=== PATIENT | female | born 1960 | race Hispanic/Latino ===

== ENCOUNTER 2023-10-22 10:18 | Emergency (ER) | payer OTHER, MEDICAID ==
[2023-10-22 12:12] LABS: #Basophils 0.06 10x3/uL (0.0-0.2); %Basophils 0.9 % (0.0-1.0); %Eosinophils 1.4 % (0.0-10.0); %Monocytes 8.5 % (0.0-10.0); %Neutrophils 63.9 % (42.0-75.0); Hematocrit 38.4 % (36.0-47.0); Hemoglobin 12.6 g/dL (12.0-16.0); Mean Corpuscular HGB CONC 32.8 g/dL (32.0-36.0); Mean Corpuscular Hemoglobin 28.8 pg (27.0-31.0); Mean Corpuscular Volume 87.9 fL (78.0-98.0); Mean Platelet Volume 9.8 fL (7.4-10.4); Platelet Count 198 10x3/uL (130-400); RBC Distribution Width 16.6 % (11.5-14.5); Red Blood Cell (RBC) Count 4.37 mill/uL (4.20-5.40)
[2023-10-22 12:32] LABS: ALT (SGPT) 35 U/L (8-55); AST (SGOT) 25 U/L (5-34); Albumin 3.2 g/dL (3.4-4.8); Alkaline Phosphatase 48 U/L (40-110); Anion Gap 16 mmol/L (10-20); BUN (Urea Nitrogen) 11 mg/dL (9.8-20.1); Bilirubin, Total 0.5 mg/dL (0.2-1.2); Calc. Creatinine Clearance 0 mL/min (70-130); Calcium 8.9 mg/dL (7.8-10.44); Carbon Dioxide 20 mmol/L (23-31); Chloride 111 mmol/L (98-107); Estimated GFR 100; Globulin 2.9 g/dL (2.4-3.5); Glucose 132 mg/dL (80-115); Potassium 3.8 mmol/L (3.5-5.1); Protein, Total 6.1 g/dL (5.8-8.1); Sodium 143 mmol/L (136-145)
[2023-10-22] MEDS ORDERED: diphenhydrAMINE 50 MG/ML VIAL ONE (12:35)
[2023-10-22] MEDS ORDERED: Metoclopramide HCl 10 MG (2 mL) VIAL ONE (12:36)
[2023-10-22 13:39] LABS: Bacteria/HPF None Seen HPF (None Seen); Bilirubin Negative (Negative); Blood, Urine Negative (Negative); CAUTI Indications for Culture Dysuria,urgency,freq; Clarity Clear (Clear); Glucose, Urine (Dipstick) 30 mg/dL (Negative); Ketone, Urine Trace mg/dL (Negative); Leukocyte 250 Leu/uL (Negative); Nitrite Negative (Negative); Protein, Urine (Dipstick) 100 mg/dL (Neg-Trace); RBC/HPF 0-3 HPF (0-3); Specific Gravity, Urine 1.031 (1.002-1.036); WBC/HPF 21-50 HPF (0-3); pH, Urine 6.5 (5.0-9.0)
[2023-10-22 13:49] LABS: Urine Culture Reflex Yes Yes
== END 2023-10-22 16:06 | disposition home or self-care (01) ==
LOC: ERS 10:18
DX: R51.9 Headache, unspecified (principal); E11.9 Type 2 diabetes mellitus without complications; I10 Essential (primary) hypertension
CPT/HCPCS: 70450; 80053; 81001; 85025; 87086; 93005; J1200; J2765; 96374; 96375

== ENCOUNTER 2023-10-25 15:21 | Inpatient (IN) | payer OTHER, MEDICAID ==
[~2023-10-25 15:21] MED LIST: Iopamidol-370 76% 500 ML MDV (1 ML CHARGE) ONE
[2023-10-25] MEDS ORDERED: Ondansetron PF 4 MG/2 ML Vial ONE (16:08)
[2023-10-25] MEDS ORDERED: Aspirin Chewable 81 MG TAB ONE (16:08)
[2023-10-25] MEDS ORDERED: dilTIAZem 25 MG/5 ML VIAL ONE (16:09)
[2023-10-25 16:10] LABS: #Basophils 0.04 10x3/uL (0.0-0.2); %Basophils 0.5 % (0.0-1.0); %Eosinophils 0.7 % (0.0-10.0); %Lymphocytes 18.3 % (21.0-51.0); %Monocytes 8.2 % (0.0-10.0); Hematocrit 37.8 % (36.0-47.0); Hemoglobin 12.3 g/dL (12.0-16.0); Mean Corpuscular HGB CONC 32.5 g/dL (32.0-36.0); Mean Corpuscular Hemoglobin 29.5 pg (27.0-31.0); Mean Corpuscular Volume 90.6 fL (78.0-98.0); Mean Platelet Volume 9.6 fL (7.4-10.4); Platelet Count 210 10x3/uL (130-400); Red Blood Cell (RBC) Count 4.17 mill/uL (4.20-5.40)
[2023-10-25 16:22] LABS: INR-International Normal Ratio 1.1; PTT 27.7 sec (22.9-36.1); Prothrombin Time 13.8 sec (12.0-14.7)
[2023-10-25 16:27] LABS: ALT (SGPT) 28 U/L (8-55); AST (SGOT) 22 U/L (5-34); Albumin 3.6 g/dL (3.4-4.8); Alkaline Phosphatase 58 U/L (40-110); Anion Gap 16 mmol/L (10-20); BUN (Urea Nitrogen) 15 mg/dL (9.8-20.1); Bilirubin, Total 0.7 mg/dL (0.2-1.2); Calc. Creatinine Clearance 0 mL/min (70-130); Calcium 9.1 mg/dL (7.8-10.44); Carbon Dioxide 22 mmol/L (23-31); Chloride 110 mmol/L (98-107); Estimated GFR 87; Glucose 239 mg/dL (80-115); Magnesium 1.8 mg/dL (1.6-2.6); Potassium 3.5 mmol/L (3.5-5.1); Protein, Total 6.6 g/dL (5.8-8.1); Sodium 144 mmol/L (136-145)
[2023-10-25 16:30] LABS: Troponin I Less than 0.010 ng/mL (< 0.028)
[2023-10-25 16:54] LABS: Actual Bicarbonate (HCO3v) 22.1 mEq/L (22-28); Base Excess -0.2 mEq/L (-2.0 to +3.0); Calcium, Ionized (venous) 1.02 mmol/L (1.16-1.32); Chloride (VBG) 107 mmol/L (98-106); Hematocrit-VBG 39 % (36.0-47.0); Hemoglobin (Hb) 13.4 g/dL (11.7-16.0); Potassium (VBG) 4.04 mmol/L (3.70-5.30); Sodium 141 mmol/L (133-146); pH (venous) 7.492 (7.32-7.43)
[2023-10-25] MEDS ORDERED: Docusate 100 MG CAP PO PRN (17:45)
[2023-10-25] MEDS ORDERED: Dextrose 5% in Water 1,000 ML IV PRN (17:49)
[2023-10-25] MEDS ORDERED: Dextrose 50% Abboject 50 ML SYRINGE SLOW IVP PRN (17:49)
[2023-10-25] MEDS ORDERED: Ondansetron PF 4 MG/2 ML Vial IVP PRN (17:49)
[2023-10-25] MEDS ORDERED: Glucagon 1 MG/ML KIT IM PRN (17:49)
[2023-10-25 18:04] LABS: Bacteria/HPF None Seen HPF (None Seen); Bilirubin Negative (Negative); Blood, Urine Negative (Negative); CAUTI Indications for Culture Alt mental st,lethar; Clarity Clear (Clear); Glucose, Urine (Dipstick) 50 mg/dL (Negative); Ketone, Urine Negative (Negative); Leukocyte Negative Leu/uL (Negative); Nitrite Negative (Negative); Protein, Urine (Dipstick) 20 mg/dL (Neg-Trace); RBC/HPF 0-3 HPF (0-3); Squamous Epithelial 0-3 HPF (0-3); Urobilinogen Normal mg/dL (Less than 2); WBC/HPF 0-3 HPF (0-3)
[2023-10-25 18:06] LABS: Specific Gravity, Urine Greater than 1.060 (1.002-1.036); Urine Culture Reflex No No
[2023-10-25 19:22] LABS: Lactic Acid 1.2 mmol/L (0.5-2.2)
[2023-10-25 19:25] LABS: Troponin I Less than 0.010 ng/mL (< 0.028)
[2023-10-25] MEDS: Amiodarone 200 MG TAB PO SCH (20:52)
[2023-10-25] MEDS: Baclofen 10 MG TAB PO SCH (20:53)
[2023-10-25] MEDS: clonazePAM 1 MG TAB PO SCH (20:53)
[2023-10-25] MEDS: Atorvastatin Calcium 40 MG TAB PO SCH (20:53)
[2023-10-25] MEDS: Carbidopa/Levodopa 25-100 mg Tablet PO SCH (20:53)
[2023-10-25] MEDS: Insulin Glargine 30 UNITS/0.3 ML VIAL SC SCH (20:54)
[2023-10-25] MEDS: Gabapentin 300 MG CAP PO SCH (20:54)
[2023-10-25 21:12] LABS: Troponin I Less than 0.010 ng/mL (< 0.028)
[2023-10-25] MEDS: Trihexyphenidyl 2 MG TAB PO SCH (22:31)
[2023-10-26 01:26] VITALS: BMI 43.7
[2023-10-26 04:43] LABS: #Basophils 0.05 10x3/uL (0.0-0.2); %Basophils 0.9 % (0.0-1.0); %Lymphocytes 27.5 % (21.0-51.0); %Monocytes 9.7 % (0.0-10.0); %Neutrophils 59.7 % (42.0-75.0); Hematocrit 34.6 % (36.0-47.0); Hemoglobin 11.2 g/dL (12.0-16.0); Mean Corpuscular HGB CONC 32.4 g/dL (32.0-36.0); Mean Corpuscular Volume 92.8 fL (78.0-98.0); Mean Platelet Volume 9.7 fL (7.4-10.4); Platelet Count 177 10x3/uL (130-400); RBC Distribution Width 17.1 % (11.5-14.5); Red Blood Cell (RBC) Count 3.73 mill/uL (4.20-5.40)
[2023-10-26 05:09] LABS: Anion Gap 10 mmol/L (10-20); BUN (Urea Nitrogen) 12 mg/dL (9.8-20.1); Calc. Creatinine Clearance 169 mL/min (70-130); Calcium 8.5 mg/dL (7.8-10.44); Carbon Dioxide 25 mmol/L (23-31); Chloride 108 mmol/L (98-107); Estimated GFR 101; Glucose 116 mg/dL (80-115); Potassium 3.4 mmol/L (3.5-5.1); Sodium 140 mmol/L (136-145)
[2023-10-26] MEDS: Levothyroxine Sodium 88 MCG TAB PO SCH (05:38)
[2023-10-26] MEDS: Acetaminophen 325 MG TAB PO PRN (05:38)
[2023-10-26] MEDS: Furosemide 40 MG (4 mL) VIAL SLOW IVP SCH (05:38)
[2023-10-26] MEDS: Potassium Chloride 20 MEQ in Premix 1 BAG IVPB SCH (06:15)
[2023-10-26 07:12] LABS: Magnesium 1.9 mg/dL (1.6-2.6)
[2023-10-26] MEDS: Mometasone 100 MCG/PUFF (1 INHALER) INH SCH (07:40)
[2023-10-26] MEDS: Potassium Chloride 20 MEQ (100 mL) BAG ONE (08:35)
[2023-10-26] MEDS ORDERED: TRAMADOL HCL 100 MG PO SCH (09:00)
[2023-10-26] MEDS: Pantoprazole DR 40 MG TAB PO SCH (09:45)
[2023-10-26] MEDS: oxyCODONE 5 MG TAB PO PRN (09:45)
[2023-10-26] MEDS: Fenofibrate Nanocrystallized 145 MG TAB PO SCH (09:48)
[2023-10-26] MEDS: Sertraline 25 MG TAB PO SCH (09:48)
[2023-10-26] MEDS: Digoxin 0.25 MG TAB PO SCH (09:48)
[2023-10-26] MEDS: Aspirin 81 mg Enteric Coated Tablet PO SCH (09:48)
[2023-10-26] MEDS: HumaLOG 300 UNITS/3 ML VIAL SC PRN (13:39)
[2023-10-27] MEDS: HYDROcodone/Acetaminophen 10/325 mg Tablet PO PRN (00:03)
[2023-10-27 08:34] LABS: #Basophils 0.05 10x3/uL (0.0-0.2); %Basophils 0.7 % (0.0-1.0); %Eosinophils 1.3 % (0.0-10.0); %Lymphocytes 23.3 % (21.0-51.0); %Monocytes 9.6 % (0.0-10.0); %Neutrophils 64.8 % (42.0-75.0); Hematocrit 43.3 % (36.0-47.0); Hemoglobin 14.1 g/dL (12.0-16.0); Mean Corpuscular HGB CONC 32.6 g/dL (32.0-36.0); Mean Corpuscular Hemoglobin 30.3 pg (27.0-31.0); Mean Corpuscular Volume 93.1 fL (78.0-98.0); Mean Platelet Volume 9.9 fL (7.4-10.4); Platelet Count 240 10x3/uL (130-400); RBC Distribution Width 16.9 % (11.5-14.5); Red Blood Cell (RBC) Count 4.65 mill/uL (4.20-5.40)
[2023-10-27 08:57] LABS: Anion Gap 17 mmol/L (10-20); BUN (Urea Nitrogen) 13 mg/dL (9.8-20.1); Calc. Creatinine Clearance 141 mL/min (70-130); Carbon Dioxide 22 mmol/L (23-31); Chloride 104 mmol/L (98-107); Estimated GFR 93; Glucose 107 mg/dL (80-115); Potassium 3.7 mmol/L (3.5-5.1); Sodium 139 mmol/L (136-145)
[2023-10-27] MEDS: HumaLOG 300 UNITS/3 ML VIAL SC PRN (20:56)
[2023-10-28 04:20] LABS: #Basophils 0.04 10x3/uL (0.0-0.2); %Basophils 0.7 % (0.0-1.0); %Eosinophils 1.3 % (0.0-10.0); %Lymphocytes 24.8 % (21.0-51.0); %Monocytes 10.9 % (0.0-10.0); Hematocrit 37.9 % (36.0-47.0); Hemoglobin 12.4 g/dL (12.0-16.0); Mean Corpuscular HGB CONC 32.7 g/dL (32.0-36.0); Mean Corpuscular Hemoglobin 30.1 pg (27.0-31.0); Mean Platelet Volume 9.7 fL (7.4-10.4); Platelet Count 219 10x3/uL (130-400); RBC Distribution Width 16.8 % (11.5-14.5); Red Blood Cell (RBC) Count 4.12 mill/uL (4.20-5.40)
[2023-10-28 04:46] LABS: Anion Gap 10 mmol/L (10-20); BUN (Urea Nitrogen) 12 mg/dL (9.8-20.1); Calc. Creatinine Clearance 151 mL/min (70-130); Calcium 8.8 mg/dL (7.8-10.44); Carbon Dioxide 27 mmol/L (23-31); Chloride 105 mmol/L (98-107); Estimated GFR 98; Glucose 133 mg/dL (80-115); Potassium 3.5 mmol/L (3.5-5.1); Sodium 138 mmol/L (136-145)
[2023-10-28] MEDS: Furosemide 40 MG TAB PO SCH (09:27)
[2023-10-29 06:28] LABS: #Basophils 0.05 10x3/uL (0.0-0.2); %Basophils 0.8 % (0.0-1.0); %Eosinophils 1.6 % (0.0-10.0); %Lymphocytes 23.2 % (21.0-51.0); %Neutrophils 63.2 % (42.0-75.0); Hematocrit 40.7 % (36.0-47.0); Hemoglobin 13.3 g/dL (12.0-16.0); Mean Corpuscular HGB CONC 32.7 g/dL (32.0-36.0); Mean Corpuscular Hemoglobin 29.8 pg (27.0-31.0); Mean Corpuscular Volume 91.3 fL (78.0-98.0); Mean Platelet Volume 9.4 fL (7.4-10.4); Platelet Count 227 10x3/uL (130-400); RBC Distribution Width 16.9 % (11.5-14.5); Red Blood Cell (RBC) Count 4.46 mill/uL (4.20-5.40)
[2023-10-29 06:41] LABS: ALT (SGPT) 7 U/L (8-55); AST (SGOT) 17 U/L (5-34); Albumin 3.1 g/dL (3.4-4.8); Alkaline Phosphatase 49 U/L (40-110); Anion Gap 12 mmol/L (10-20); BUN (Urea Nitrogen) 9 mg/dL (9.8-20.1); Bilirubin, Total 0.6 mg/dL (0.2-1.2); Calc. Creatinine Clearance 168 mL/min (70-130); Calcium 8.5 mg/dL (7.8-10.44); Carbon Dioxide 27 mmol/L (23-31); Chloride 107 mmol/L (98-107); Estimated GFR 101; Glucose 72 mg/dL (80-115); Potassium 2.9 mmol/L (3.5-5.1); Protein, Total 6.1 g/dL (5.8-8.1); Sodium 143 mmol/L (136-145)
[2023-10-29] MEDS: Potassium Chloride 20 MEQ TAB PO SCH ×2 (10:20→13:25)
[2023-10-29] MEDS ORDERED: Diclofenac 1% 50 GM TOPICAL GEL TP PRN (13:12)
[2023-10-29 15:54] VITALS: BP 135/71; TEMP 98.9
== END 2023-10-29 17:06 | DRG 291 ==
LOC: ERS 15:21 → 2SW 17:52 → OBSVTOIN 10-26 11:13 → 2NO 10-27 11:57
PROVIDERS: ADMIT Family Medicine; ATTEND Internal Medicine
DX: I11.0 Hypertensive heart disease with heart failure (principal); I50.33 Acute on chronic diastolic (congestive) heart failure; J96.01 Acute respiratory failure with hypoxia; Z68.41 Body mass index [BMI] 40.0-44.9, adult; I48.19 Other persistent atrial fibrillation; E11.9 Type 2 diabetes mellitus without complications; E78.5 Hyperlipidemia, unspecified; E03.9 Hypothyroidism, unspecified; G20.A1 Parkinson's disease without dyskinesia, without mention of fluctuations; F39 Unspecified mood [affective] disorder; Z79.4 Long term (current) use of insulin; Z79.899 Other long term (current) drug therapy; Z79.82 Long term (current) use of aspirin; E66.01 Morbid (severe) obesity due to excess calories; Z86.73 Personal history of transient ischemic attack (TIA), and cerebral infarction without residual deficits
CPT/HCPCS: 36415; 36416; 70450; 71045; 74177; 80048; 80053; 81001; 82805; 83605; 83735; 83880; 84443; 84484; 85025; 85610; 85730; 87040; 93005; 94760; 96374; 96375; J1815; J1940; J2405; J3480; Q9967

== ENCOUNTER 2023-12-06 12:36 | Outpatient (CLI) | payer MEDICARE, MEDICAID | END 2023-12-06 12:37 | disposition home or self-care (01) | LOC: SCSMRI 12:36 | PROVIDERS: ATTEND Psychiatry & Neurology Neurology | DX: G20.A1 Parkinson's disease without dyskinesia, without mention of fluctuations (principal); I63.9 Cerebral infarction, unspecified; I61.9 Nontraumatic intracerebral hemorrhage, unspecified | CPT/HCPCS: 70553; 76377 ==

== ENCOUNTER 2024-04-02 12:09 | Emergency (ER) | payer MEDICARE, OTHER | END 2024-04-02 15:40 | disposition home or self-care (01) | LOC: ERS 12:09 | DX: B34.9 Viral infection, unspecified (principal); E11.9 Type 2 diabetes mellitus without complications; I11.0 Hypertensive heart disease with heart failure; I50.9 Heart failure, unspecified | CPT/HCPCS: 87081; 87428; 87430; 99283 ==

== ENCOUNTER 2025-01-09 08:58 | Emergency (ER) | payer MEDICARE, MEDICAID ==
[2025-01-09] MEDS ORDERED: Ondansetron PF 4 MG/2 ML Vial ONE ×2 (09:24→10:40)
[2025-01-09 09:52] LABS: #Basophils 0.05 10x3/uL (0.0-0.2); #Eosinophils 0.21 10x3/uL (0.0-0.7); #Monocytes 0.47 10x3/uL (0.11-0.59); #Neutrophils 3.56 10x3/uL (1.40-6.50); %Basophils 0.8 % (0.0-1.0); %Eosinophils 3.4 % (0.0-10.0); %Lymphocytes 30.1 % (21.0-51.0); %Monocytes 7.6 % (0.0-10.0); %Neutrophils 57.9 % (42.0-75.0); Hematocrit 42.4 % (36.0-47.0); Hemoglobin 13.5 g/dL (12.0-16.0); Mean Corpuscular Hemoglobin 30.3 pg (27.0-31.0); Mean Corpuscular Volume 95.1 fL (78.0-98.0); Platelet Count 225 10x3/uL (130-400); Red Blood Cell (RBC) Count 4.46 mill/uL (4.20-5.40); White Blood Cell (WBC) Count 6.15 10x3/uL (4.8-10.8)
[2025-01-09 10:45] LABS: ALT (SGPT) Less than 7 U/L (Less than 34); AST (SGOT) 32 U/L (11-34); Albumin 3.6 g/dL (3.1-4.5); Alkaline Phosphatase 49 U/L (40-110); Anion Gap 10 mmol/L (10-20); BUN (Urea Nitrogen) 19 mg/dL (9.8-20.1); Bilirubin, Total 0.5 mg/dL (0.3-1.2); Calc. Creatinine Clearance 0 mL/min (70-130); Calcium 9.0 mg/dL (7.8-10.44); Carbon Dioxide 29 mmol/L (23-31); Chloride 107 mmol/L (98-107); Globulin 3.7 g/dL (2.4-3.5); Glucose 109 mg/dL (80-115); Potassium 3.6 mmol/L (3.5-5.1); Sodium 142 mmol/L (136-145)
== END 2025-01-09 14:44 | disposition home or self-care (01) ==
LOC: ERS 08:58
DX: S06.0X0A Concussion without loss of consciousness, initial encounter (principal); M54.9 Dorsalgia, unspecified; E11.9 Type 2 diabetes mellitus without complications; I11.0 Hypertensive heart disease with heart failure; I50.9 Heart failure, unspecified; W18.30XA Fall on same level, unspecified, initial encounter; Z55.6 Problems related to health literacy
CPT/HCPCS: 70450; 71045; 72125; 72170; 74176; 80053; 85025; 93005; J2270; J2405; 96374; 96375